=== PATIENT | female | born 1990 | race Caucasian/White ===

== ENCOUNTER 2017-04-08 10:44 | Emergency (ER) | payer SELFPAY ==
[~2017-04-08] VITALS: Ht 152.4 cm; Wt 51.6 kg
[~2017-04-08 10:44] MED LIST: BACTRIM,SEPT1 TABLET PO; FISH OIL500 MG PO; FLEXERIL10 MG PO; IBUPROFEN800 MG PO; KEFLEX500 MG PO; KETOCONAZOLE60 GM TP; LIDODERM 5% P1 PATCH TD; LOPERAMIDE2 M1 PO; MOTRIN600 MG PO; NAPROSYN500 MG PO; NARCAN4 MG NS; NORCO 7.5/321 TABLET PO; PERCOCET 5/31 TABLET PO; PROMETHAZINE HC25 M1 PO; TYLENOL REGULA325 MG PO; ZOFRAN4 MG PO
[2017-04-08 11:33] LABS: HEMATOCRIT 46.7 % (36.0-46.0); MCH 28.7 PG (29.0-34.0); MCHC 32.1 G/DL (30.0-36.0); MCV 89.5 FL (83-99); MEAN PLAT.VOLUME 9.5 uM^3 (9.5-12.4); PLATELET COUNT 297 K/uL (156-360); RBC DIS.WIDTH-CV 13.6 % (11.8-14.6); RBC DIS.WIDTH-SD 44.4 % (39-53); RED BLOOD COUNT 5.22 M/uL (3.80-5.20); WHITE BLOOD COUNT 14.6 K/uL (4.1-10.2)
[2017-04-08 11:41] LABS: CHLORIDE 103 mEq/L (99-109); POTASSIUM 4.4 mEq/L (3.7-5.4); SODIUM 141 mEq/L (136-147)
[2017-04-08 11:43] LABS: ADD MIUA? YES; BILIRUBIN NEGATIVE; BLOOD NEGATIVE; COLOR YELLOW ((YELLOW)); GLUCOSE (STRIP) NEGATIVE; KETONES NEGATIVE; LEUKOCYTES TRACE; NITRITE NEGATIVE; PROTEIN (STRIP) NEGATIVE; SPECIFIC GRAVITY 1.018 (1.000-1.030); UROBILINOGEN 0.2 MG/DL (0.2-1.0)
[2017-04-08 11:44] LABS: GLUCOSE 106 mg/dL (70-99)
[2017-04-08 11:45] LABS: ANION GAP 10 MEQ/L (2-14); TOTAL BILIRUBIN 0.3 mg/dL (0.0-1.0)
[2017-04-08 11:47] LABS: ALKALINE PHOSPHATASE 90 IU/L (3-129); GFR ESTIMATE (CALCULATED) > 59 mL/min/
[2017-04-08 11:48] LABS: UREA NITROGEN (BUN) 10 mg/dL (9-23)
[2017-04-08 11:51] LABS: BACTERIA RARE /HPF; EPITHELIAL CELLS RARE /HPF; HYALINE CASTS 0-5 /LPF; MUCUS TRACE /LPF; RED BLOOD CELLS 0-5 /HPF (0-5); UCUL ADDED? NO; WHITE BLOOD CELLS 0-5 /HPF (0-5)
[2017-04-08 11:56] LABS: QUANTITATIVE HCG < 4.0 MIU/ML
[2017-04-08] MEDS ORDERED: ZOFRAN ODT8 MG PO (15:17)
[2017-04-08 15:35] VITALS: BP 104/60
[2017-04-09 13:25] LABS: CHLAMYDIA TRACHOMATIS POSITIVE; NEISSERIA GONORRHOEAE POSITIVE
== END 2017-04-08 15:38 | disposition home or self-care (01) ==
LOC: EME 10:44
PROVIDERS: Physician Assistant
DX: R10.31 Right lower quadrant pain (principal); R11.2 Nausea with vomiting, unspecified; R19.7 Diarrhea, unspecified; F17.200 Nicotine dependence, unspecified, uncomplicated
CPT/HCPCS: 74177; 80053; 81003; 84702; 85027; 87210; 87491; 87591; 99281; 99284; J1885; J7040

== ENCOUNTER 2017-05-20 15:04 | Emergency (ER) | payer SELFPAY ==
[~2017-05-20] VITALS: Ht 152.4 cm; Wt 49.5 kg
[~2017-05-20 15:04] MED LIST changes: +ZOFRAN ODT8 MG PO
[2017-05-20 15:42] LABS: HEMATOCRIT 44.3 % (36.0-46.0); MCH 29.1 PG (29.0-34.0); MCHC 33.2 G/DL (30.0-36.0); MCV 87.5 FL (83-99); MEAN PLAT.VOLUME 10.1 uM^3 (9.5-12.4); PLATELET COUNT 270 K/uL (156-360); RBC DIS.WIDTH-CV 13.6 % (11.8-14.6); RBC DIS.WIDTH-SD 43.2 % (39-53); RED BLOOD COUNT 5.06 M/uL (3.80-5.20); WHITE BLOOD COUNT 6.6 K/uL (4.1-10.2)
[2017-05-20 15:49] LABS: ADD MIUA? YES; BILIRUBIN NEGATIVE; BLOOD NEGATIVE; COLOR AMBER ((YELLOW)); GLUCOSE (STRIP) NEGATIVE; KETONES NEGATIVE; LEUKOCYTES NEGATIVE; NITRITE NEGATIVE; PROTEIN (STRIP) 30; SPECIFIC GRAVITY 1.023 (1.000-1.030)
[2017-05-20 15:50] LABS: CHLORIDE 105 mEq/L (99-109); POTASSIUM 3.9 mEq/L (3.7-5.4); SODIUM 140 mEq/L (136-147)
[2017-05-20 15:52] LABS: GLUCOSE 100 mg/dL (70-99)
[2017-05-20 15:54] LABS: ANION GAP 11 MEQ/L (2-14); TOTAL BILIRUBIN 1.3 mg/dL (0.0-1.0)
[2017-05-20 15:56] LABS: ALKALINE PHOSPHATASE 125 IU/L (3-129); GFR ESTIMATE (CALCULATED) > 59 mL/min/
[2017-05-20 15:57] LABS: BACTERIA RARE /HPF; EPITHELIAL CELLS 1+ /HPF; MUCUS TRACE /LPF; RED BLOOD CELLS 0-5 /HPF (0-5); WHITE BLOOD CELLS 0-5 /HPF (0-5)
[2017-05-20 15:57] LABS: UREA NITROGEN (BUN) 7 mg/dL (9-23)
[2017-05-20 16:05] LABS: QUANTITATIVE HCG < 4.0 MIU/ML
[2017-05-20] MEDS ORDERED: DOXYCYCLINE MO100 MG PO (17:01)
[2017-05-20 17:16] VITALS: BP 119/73
== END 2017-05-20 17:19 | disposition home or self-care (01) ==
LOC: EME 15:04
PROVIDERS: Physician Assistant
DX: R10.2 Pelvic and perineal pain (principal); A54.9 Gonococcal infection, unspecified; A74.9 Chlamydial infection, unspecified; R74.8 Abnormal levels of other serum enzymes; F17.200 Nicotine dependence, unspecified, uncomplicated
CPT/HCPCS: 80053; 81003; 84702; 85027; 87210; 99281; 99284; J0696

== ENCOUNTER 2017-07-15 09:36 | Inpatient (IN) | payer OTHER ==
[~2017-07-15] VITALS: Ht 160 cm; Wt 49.4 kg
[~2017-07-15 09:36] MED LIST changes: +DOXYCYCLINE MO100 MG PO
[2017-07-15 10:10] LABS: HEMATOCRIT 43.9 % (36.0-46.0); MCH 29.7 PG (29.0-34.0); MCHC 33.5 G/DL (30.0-36.0); MCV 88.7 FL (83-99); MEAN PLAT.VOLUME 10.3 uM^3 (9.5-12.4); PLATELET COUNT 265 K/uL (156-360); RBC DIS.WIDTH-CV 13.9 % (11.8-14.6); RBC DIS.WIDTH-SD 45.1 % (39-53); RED BLOOD COUNT 4.95 M/uL (3.80-5.20); WHITE BLOOD COUNT 6.9 K/uL (4.1-10.2)
[2017-07-15 10:20] LABS: CHLORIDE 106 mEq/L (99-109); POTASSIUM 4.2 mEq/L (3.7-5.4); SODIUM 139 mEq/L (136-147)
[2017-07-15 10:22] LABS: GLUCOSE 108 mg/dL (70-99)
[2017-07-15 10:23] LABS: ANION GAP 12 MEQ/L (2-14)
[2017-07-15 10:25] LABS: GFR ESTIMATE (CALCULATED) > 59 mL/min/; SERUM ETHYL ALCOHOL < 10 mg/dL
[2017-07-15 10:26] LABS: UREA NITROGEN (BUN) 11 mg/dL (9-23)
[2017-07-15 12:26] LABS: ADD MIUA? YES; BILIRUBIN NEGATIVE; BLOOD NEGATIVE; COLOR AMBER ((YELLOW)); GLUCOSE (STRIP) NEGATIVE; KETONES NEGATIVE; LEUKOCYTES NEGATIVE; NITRITE NEGATIVE; PROTEIN (STRIP) NEGATIVE; SPECIFIC GRAVITY 1.034 (1.000-1.030)
[2017-07-15 12:29] LABS: INTERNAL CONTROL VALID? YES
[2017-07-15 12:35] LABS: AMPHETAMINE NEGATIVE (500 ng/mL); BARBITURATES NEGATIVE (200 ng/mL); BENZODIAZEPINES PRESUMPTIVE POSITIVE (150 ng/mL); COCAINE PRESUMPTIVE POSITIVE (150 ng/mL); METHADONE NEGATIVE (200 ng/mL); METHAMPHETAMINE NEGATIVE (500 ng/mL); OPIATES (MORPHINE) NEGATIVE (100 ng/mL); OXYCODONE NEGATIVE (100 ng/mL); PHENCYCLIDINE NEGATIVE (25 ng/mL); PROPOXYPHENE NEGATIVE (300 ng/mL); THC CANNABINOIDS PRESUMPTIVE POSITIVE (50 ng/mL); TRICYCLIC ANTIDEPRESSANTS NEGATIVE (300 ng/mL)
[2017-07-15 12:36] LABS: ADD MEDTOX COMMENT Y; INTERNAL CONTROLS VALID? YES
[2017-07-15 12:44] LABS: BACTERIA RARE /HPF; EPITHELIAL CELLS RARE /HPF; HYALINE CASTS 0-5 /LPF; MUCUS 3+ /LPF; WHITE BLOOD CELLS 0-5 /HPF (0-5)
[2017-07-15 13:16] LABS: BENZODIAZEPINES, URINE SCREEN POSITIVE (200 ng/mL)
[2017-07-15 16:04] VITALS: BP 106/60
[2017-07-15 21:25] VITALS: BP 114/65
[2017-07-16 01:35] VITALS: BP 115/65
[2017-07-16 07:30] VITALS: BP 115/65
[2017-07-16 15:29] VITALS: BP 99/49
[2017-07-16 18:50] VITALS: BP 122/57
[2017-07-17 07:40] VITALS: BP 108/63
[2017-07-17 15:47] VITALS: BP 113/55
[2017-07-17 19:14] VITALS: BP 105/57
[2017-07-18 07:02] VITALS: BP 116/66
[2017-07-18 15:36] VITALS: BP 108/65
== END 2017-07-18 17:08 | disposition home or self-care (01) | DRG 881 ==
LOC: EME 09:36 → EDOF 13:52 → 1WEST 13:52 → ENRESERV 15:14 → 1WEST 15:54
PROVIDERS: Emergency Medicine
DX: F32.9 Major depressive disorder, single episode, unspecified (principal); F11.20 Opioid dependence, uncomplicated; R45.851 Suicidal ideations; F17.200 Nicotine dependence, unspecified, uncomplicated; F41.9 Anxiety disorder, unspecified; F12.90 Cannabis use, unspecified, uncomplicated; Z91.5 Personal history of self-harm; F14.20 Cocaine dependence, uncomplicated; F13.20 Sedative, hypnotic or anxiolytic dependence, uncomplicated
CPT/HCPCS: 80048; 81003; 84703; 84999; 85027; 90839; 97150 GO; 97165 GO; 99281; 99285; G0480; Q0169; Q0177

== ENCOUNTER 2017-09-28 12:08 | Emergency (ER) | payer SELFPAY ==
[~2017-09-28] VITALS: Ht 152.4 cm; Wt 50.4 kg
[2017-09-28 13:25] LABS: HEMATOCRIT 42.4 % (36.0-46.0); HEMOGLOBIN 14.3 G/DL (11.9-15.5); MCHC 33.7 G/DL (30.0-36.0); MCV 89.1 FL (83-99); PLATELET COUNT 267 K/uL (156-360); RBC DIS.WIDTH-CV 12.3 % (11.8-14.6); RBC DIS.WIDTH-SD 40.8 % (39-53); RED BLOOD COUNT 4.76 M/uL (3.80-5.20); WHITE BLOOD COUNT 5.9 K/uL (4.1-10.2)
[2017-09-28 13:33] LABS: CHLORIDE 103 mEq/L (99-109); POTASSIUM 4.4 mEq/L (3.7-5.4); SODIUM 138 mEq/L (136-147)
[2017-09-28 13:36] LABS: GLUCOSE 129 mg/dL (70-99); TOTAL PROTEIN 7.8 g/dL (6.4-8.3)
[2017-09-28 13:38] LABS: TOTAL BILIRUBIN 0.6 mg/dL (0.0-1.0)
[2017-09-28 13:39] LABS: ALKALINE PHOSPHATASE 97 IU/L (3-129); CREATININE 0.8 mg/dL (0.6-1.3); GFR ESTIMATE (CALCULATED) > 59 mL/min/
[2017-09-28 13:40] LABS: UREA NITROGEN (BUN) 8 mg/dL (9-23)
[2017-09-28 13:41] LABS: AST (GOT) 23 IU/L (2-34)
[2017-09-28 13:42] LABS: ALT (GPT) 30 IU/L (3-49)
[2017-09-28 13:49] LABS: QUANTITATIVE HCG < 4.0 MIU/ML
[2017-09-28 13:54] LABS: APPEARANCE CLOUDY ((CLEAR)); BILIRUBIN NEGATIVE; BLOOD SMALL; COLOR YELLOW ((YELLOW)); GLUCOSE (STRIP) NEGATIVE; KETONES NEGATIVE; LEUKOCYTES NEGATIVE; NITRITE NEGATIVE; PROTEIN (STRIP) NEGATIVE; SPECIFIC GRAVITY 1.021 (1.000-1.030); UROBILINOGEN 0.2 MG/DL (0.2-1.0)
[2017-09-28 13:59] LABS: BACTERIA RARE /HPF; CALCIUM OXALATE CRYSTALS 1+ /HPF; EPITHELIAL CELLS 4+ /HPF; MUCUS TRACE /LPF; RED BLOOD CELLS 0-5 /HPF (0-5); UCUL ADDED? NO; WHITE BLOOD CELLS 0-5 /HPF (0-5)
[2017-09-28 14:20] LABS: MONOSPOT (MONONUCLEOSIS SEROL) NEGATIVE
[2017-09-28] MEDS ORDERED: ATARAX,VISTARIL50 MG PO (14:28)
[2017-09-28] MEDS ORDERED: KEFLEX500 MG PO (14:28)
[2017-09-28 14:39] LABS: SOURCE URINE
[2017-09-28 15:37] VITALS: BP 125/80
[2017-09-29 13:20] LABS: CHLAMYDIA TRACHOMATIS NEGATIVE; NEISSERIA GONORRHOEAE NEGATIVE
== END 2017-09-28 15:38 | disposition home or self-care (01) ==
LOC: EME 12:08
PROVIDERS: Nurse Practitioner Family
DX: L98.499 Non-pressure chronic ulcer of skin of other sites with unspecified severity (principal); F19.10 Other psychoactive substance abuse, uncomplicated; F32.9 Major depressive disorder, single episode, unspecified; F17.200 Nicotine dependence, unspecified, uncomplicated; Z88.6 Allergy status to analgesic agent; Z88.5 Allergy status to narcotic agent
CPT/HCPCS: 80053; 81003; 84702; 85027; 86308; 87491; 87591; 87651 90; 99281; 99284

== ENCOUNTER 2017-10-11 22:21 | Inpatient (IN) | payer OTHER ==
[~2017-10-11] VITALS: Ht 152.4 cm; Wt 52.1 kg
[~2017-10-11 22:21] MED LIST changes: +ATARAX,VISTARIL50 MG PO
[2017-10-11 23:02] LABS: AMPHETAMINE NEGATIVE (500 ng/mL); BARBITURATES NEGATIVE (200 ng/mL); BENZODIAZEPINES NEGATIVE (150 ng/mL); BUPRENORPHINE PRESUMPTIVE POSITIVE (10 ng/mL); COCAINE PRESUMPTIVE POSITIVE (150 ng/mL); METHADONE NEGATIVE (200 ng/mL); METHAMPHETAMINE NEGATIVE (500 ng/mL); OPIATES (MORPHINE) PRESUMPTIVE POSITIVE (100 ng/mL); OXYCODONE NEGATIVE (100 ng/mL); PHENCYCLIDINE NEGATIVE (25 ng/mL); PROPOXYPHENE NEGATIVE (300 ng/mL); THC CANNABINOIDS PRESUMPTIVE POSITIVE (50 ng/mL); TRICYCLIC ANTIDEPRESSANTS NEGATIVE (300 ng/mL)
[2017-10-11 23:03] LABS: HEMATOCRIT 42.6 % (36.0-46.0); HEMOGLOBIN 14.1 G/DL (11.9-15.5); MCHC 33.1 G/DL (30.0-36.0); MCV 90.6 FL (83-99); PLATELET COUNT 266 K/uL (156-360); RBC DIS.WIDTH-CV 13.1 % (11.8-14.6); RBC DIS.WIDTH-SD 43.4 % (39-53); WHITE BLOOD COUNT 7.6 K/uL (4.1-10.2)
[2017-10-11 23:11] LABS: CHLORIDE 105 mEq/L (99-109); POTASSIUM 3.9 mEq/L (3.7-5.4); SODIUM 138 mEq/L (136-147)
[2017-10-11 23:13] LABS: GLUCOSE 113 mg/dL (70-99)
[2017-10-11 23:16] LABS: SERUM ETHYL ALCOHOL < 10 mg/dL
[2017-10-11 23:17] LABS: CREATININE 0.8 mg/dL (0.6-1.3); GFR ESTIMATE (CALCULATED) > 59 mL/min/
[2017-10-11 23:18] LABS: UREA NITROGEN (BUN) 8 mg/dL (9-23)
[2017-10-11 23:28] LABS: QUANTITATIVE HCG < 4.0 MIU/ML
[2017-10-12 03:47] VITALS: BP 98/57
[2017-10-12 07:22] VITALS: BP 95/52
[2017-10-12] MEDS ORDERED: LEXAPRO10 MG PO (07:47)
[2017-10-12] MEDS ORDERED: ABILIFY10 MG PO (07:47)
[2017-10-12] MEDS ORDERED: KEPPRA1000 MG PO (07:48)
[2017-10-12] MEDS ORDERED: DEPAKOTE500 MG PO (07:48)
[2017-10-12 15:12] VITALS: BP 105/53
[2017-10-13 07:58] VITALS: BP 117/65
[2017-10-13 16:25] VITALS: BP 111/60
[2017-10-14 07:58] VITALS: BP 114/62
[2017-10-14 16:01] VITALS: BP 119/55
[2017-10-15 09:35] VITALS: BP 111/63
== END 2017-10-15 11:19 | disposition home or self-care (01) | DRG 897 ==
LOC: EME 22:21 → 1WEST 10-12 00:43 → EDOF 10-12 00:43 → 1WEST 10-12 02:45 → ENRESERV 10-12 02:45 → 1WEST 10-15 11:19
DX: F11.10 Opioid abuse, uncomplicated (principal); F14.10 Cocaine abuse, uncomplicated; F12.10 Cannabis abuse, uncomplicated; F17.200 Nicotine dependence, unspecified, uncomplicated
CPT/HCPCS: 80048; 84702; 84999; 85027; 90839; 97150 GO; 97165 GO; 99281; 99285; G0480; J0572; J0574; Q0177

== ENCOUNTER 2018-03-02 08:54 | Inpatient (IN) | payer OTHER ==
[~2018-03-02] VITALS: Ht 152.4 cm; Wt 51.6 kg
[~2018-03-02 08:54] MED LIST changes: +ABILIFY10 MG PO; +DEPAKOTE500 MG PO; +KEPPRA1000 MG PO; +LEXAPRO10 MG PO
[2018-03-02 09:53] LABS: APPEARANCE SL.HAZY ((CLEAR)); BILIRUBIN NEGATIVE; BLOOD NEGATIVE; COLOR YELLOW ((YELLOW)); GLUCOSE (STRIP) NEGATIVE; KETONES NEGATIVE; LEUKOCYTES NEGATIVE; NITRITE NEGATIVE; PROTEIN (STRIP) NEGATIVE; SPECIFIC GRAVITY 1.015 (1.000-1.030); UROBILINOGEN 0.2 MG/DL (0.2-1.0)
[2018-03-02 09:56] LABS: BACTERIA NONE SEEN /HPF; EPITHELIAL CELLS RARE /HPF; MUCUS TRACE /LPF; RED BLOOD CELLS 0-5 /HPF (0-5); WHITE BLOOD CELLS 0-5 /HPF (0-5)
[2018-03-02 10:15] LABS: AMPHETAMINE NEGATIVE (500 ng/mL); BARBITURATES NEGATIVE (200 ng/mL); BENZODIAZEPINES NEGATIVE (150 ng/mL); BUPRENORPHINE NEGATIVE (10 ng/mL); COCAINE PRESUMPTIVE POSITIVE (150 ng/mL); METHADONE NEGATIVE (200 ng/mL); METHAMPHETAMINE NEGATIVE (500 ng/mL); OPIATES (MORPHINE) NEGATIVE (100 ng/mL); OXYCODONE NEGATIVE (100 ng/mL); PHENCYCLIDINE NEGATIVE (25 ng/mL); PROPOXYPHENE NEGATIVE (300 ng/mL); THC CANNABINOIDS NEGATIVE (50 ng/mL); TRICYCLIC ANTIDEPRESSANTS NEGATIVE (300 ng/mL)
[2018-03-02 10:33] LABS: BASOPHIL (%) 0.2 % (0-1); EOSINOPHIL (%) 0.9 % (0-5); EOSINOPHIL COUNT 0.1 K/uL (0-0.3); HEMATOCRIT 38.8 % (36.0-46.0); HEMOGLOBIN 13.2 G/DL (11.9-15.5); IMMATURE GRANULOCYTE (%) 0.4 % (0.0-0.7); LYMPHOCYTE (%) 19.7 % (15-42); LYMPHOCYTE COUNT 1.9 K/uL (1.0-2.8); MCH 30.8 PG (29.0-34.0); MCV 90.4 FL (83-99); MONOCYTE (%) 6.4 % (3-12); MONOCYTE COUNT 0.6 K/uL (0-0.8); NEUTROPHIL (%) 72.4 % (45-76); NEUTROPHIL COUNT 6.9 K/uL (1.8-6.4); PLATELET COUNT 317 K/uL (156-360); RBC DIS.WIDTH-CV 12.8 % (11.8-14.6); RBC DIS.WIDTH-SD 41.9 % (39-53); RED BLOOD COUNT 4.29 M/uL (3.80-5.20); WHITE BLOOD COUNT 9.6 K/uL (4.1-10.2)
[2018-03-02 10:44] LABS: CHLORIDE 103 mEq/L (99-109); POTASSIUM 3.8 mEq/L (3.7-5.4); SODIUM 137 mEq/L (136-147)
[2018-03-02 10:46] LABS: GLUCOSE 95 mg/dL (70-99)
[2018-03-02 10:49] LABS: CREATININE 0.8 mg/dL (0.6-1.3); GFR ESTIMATE (CALCULATED) > 59 mL/min/; SERUM ETHYL ALCOHOL < 10 mg/dL
[2018-03-02 10:50] LABS: UREA NITROGEN (BUN) 6 mg/dL (9-23)
[2018-03-02 13:40] VITALS: BP 105/68
[2018-03-02 14:03] VITALS: BP 105/68
[2018-03-03 08:05] VITALS: BP 103/61
[2018-03-03 16:23] VITALS: BP 146/82
[2018-03-04 07:44] VITALS: BP 116/64
[2018-03-04 16:23] VITALS: BP 115/64
[2018-03-05 07:52] VITALS: BP 106/75
== END 2018-03-05 14:08 | disposition home or self-care (01) | DRG 881 ==
LOC: EME 08:54 → 1WEST 11:13 → EDOF 11:13 → ENRESERV 13:01 → 1WEST 13:24
PROVIDERS: Emergency Medicine
DX: F32.9 Major depressive disorder, single episode, unspecified (principal); F11.23 Opioid dependence with withdrawal; F41.9 Anxiety disorder, unspecified; F17.200 Nicotine dependence, unspecified, uncomplicated; Z56.0 Unemployment, unspecified
CPT/HCPCS: 80048; 81003; 84999; 85025; 90839; 97165 GO; 99281; 99284; G0480; J0572; J0574; Q0169; Q0177